=== PATIENT | male | born 1935 | race Two or more races ===

== ENCOUNTER → 2018-11-25 | Emergency (ER) | payer OTHER ==
[~2018-11-25] VITALS: Ht 165.1 cm; Wt 47.6 kg
[~2018-11-25] MED LIST: ARICEPT10 MG PO; CELEBREX100 MG PO; NAMENDA1 EACH PO; ORPHENADRINE C100 MG PO
== END | disposition home or self-care (01) ==
LOC: ER 10:49
DX: S52.515A Nondisplaced fracture of left radial styloid process, initial encounter for closed fracture (principal); S30.0XXA Contusion of lower back and pelvis, initial encounter; W18.39XA Other fall on same level, initial encounter; Y93.89 Activity, other specified; Y92.098 Other place in other non-institutional residence as the place of occurrence of the external cause; Y99.8 Other external cause status

== ENCOUNTER 2019-01-30 14:52 | Outpatient (CLI) | payer OTHER | END 2019-01-30 15:01 | disposition home or self-care (01) | LOC: TOM 14:52 | DX: S06.5X0A Traumatic subdural hemorrhage without loss of consciousness, initial encounter (principal); I67.82 Cerebral ischemia ==

== ENCOUNTER 2020-04-11 14:39 | Outpatient (CLI) | payer OTHER | END 2020-04-11 14:40 | disposition home or self-care (01) | LOC: MRI 14:39 | DX: G30.1 Alzheimer's disease with late onset (principal); I67.89 Other cerebrovascular disease | CPT/HCPCS: 70551 ==

== ENCOUNTER 2020-04-23 09:00 | Inpatient (IN) | payer OTHER ==
[~2020-04-23] VITALS: Ht 160 cm; Wt 45.4 kg
== END 2020-05-01 17:56 | disposition home or self-care (01) | DRG 683 ==
LOC: ER 09:00 → SEC-K 16:50 → SURH 16:50
PROVIDERS: ADMIT Internal Medicine; ATTEND Internal Medicine
PROC: BT43ZZZ Ultrasonography of Bilateral Kidneys (ICD-10-PCS; principal; 2020-04-23)
PROC: 0T9B70Z Drainage of Bladder with Drainage Device, Via Natural or Artificial Opening (ICD-10-PCS; 2020-04-23)
PROC: 0DH67UZ Insertion of Feeding Device into Stomach, Via Natural or Artificial Opening (ICD-10-PCS; 2020-04-24)
PROC: 3E0G76Z Introduction of Nutritional Substance into Upper GI, Via Natural or Artificial Opening (ICD-10-PCS; 2020-04-24)
PROC: 8E0ZXY6 Isolation (ICD-10-PCS; 2020-04-24)
DX: N17.8 Other acute kidney failure (principal); E87.0 Hyperosmolality and hypernatremia; E44.0 Moderate protein-calorie malnutrition; E86.0 Dehydration; E87.8 Other disorders of electrolyte and fluid balance, not elsewhere classified; R63.0 Anorexia; F03.90 Unspecified dementia, unspecified severity, without behavioral disturbance, psychotic disturbance, mood disturbance, and anxiety; R31.29 Other microscopic hematuria; Z03.818 Encounter for observation for suspected exposure to other biological agents ruled out

== ENCOUNTER 2020-05-28 18:38 | Emergency (ER) | payer OTHER ==
[~2020-05-28] VITALS: Ht 170.2 cm; Wt 63.5 kg
[2020-05-28] MEDS ORDERED: PANTOPRAZOLE (19:30)
== END 2020-05-28 23:59 | disposition home or self-care (01) ==
LOC: ER 18:38
DX: S70.02XA Contusion of left hip, initial encounter (principal); S70.01XA Contusion of right hip, initial encounter; M54.5 Low back pain; W06.XXXA Fall from bed, initial encounter; Y93.89 Activity, other specified; Y92.013 Bedroom of single-family (private) house as the place of occurrence of the external cause; Y99.8 Other external cause status

== ENCOUNTER 2020-07-13 23:02 | Emergency (ER) | payer OTHER ==
[~2020-07-13] VITALS: Ht 160 cm; Wt 45.4 kg
[~2020-07-13 23:02] MED LIST changes: +PANTOPRAZOLE
[2020-07-14] MEDS ORDERED: CELEBREX100 MG PO (03:08)
[2020-07-14] MEDS ORDERED: MULTI VITAMIN1 EACH PO (10:27)
== END 2020-07-14 03:33 | disposition home or self-care (01) ==
LOC: ER 23:02
DX: S01.82XA Laceration with foreign body of other part of head, initial encounter (principal); W45.8XXA Other foreign body or object entering through skin, initial encounter; Y93.89 Activity, other specified; Y92.098 Other place in other non-institutional residence as the place of occurrence of the external cause; Y99.8 Other external cause status

== ENCOUNTER 2020-07-14 10:20 | Emergency (ER) | payer OTHER ==
[~2020-07-14] VITALS: Ht 167.6 cm; Wt 44.9 kg
[2020-07-14] MEDS ORDERED: MULTI VITAMIN1 EACH PO (10:27)
== END 2020-07-14 14:53 | disposition home or self-care (01) ==
LOC: ER 10:20
DX: S00.11XD Contusion of right eyelid and periocular area, subsequent encounter (principal); W06.XXXD Fall from bed, subsequent encounter; G30.8 Other Alzheimer's disease; F02.80 Dementia in other diseases classified elsewhere, unspecified severity, without behavioral disturbance, psychotic disturbance, mood disturbance, and anxiety; M25.551 Pain in right hip

== ENCOUNTER 2022-06-02 22:44 | Inpatient (IN) | payer OTHER ==
[~2022-06-02] VITALS: Ht 152.4 cm; Wt 54.4 kg
[~2022-06-02 22:44] MED LIST changes: +MULTI VITAMIN1 EACH PO
--- NOTE | 2022-06-02 23:03 | NUR ---
SE RECIBE PACIENTE EN COMPANIA DE FAMILIAR Y PERSONAL DE EMERGENCIAS MEDICAS POR TOS CON FLEMA Y DIFICULTAD PARA RESPIRAR HACE VARIOS CARIAS. SE COLOCA EN K8 Y SE REALIZA TRIAGE.
--- NOTE | 2022-06-02 23:38 | NUR ---
SE EDUCA A PTE SOBRE TX MEDICO GREGG REFIERE ENTENDER. SE SERGEY MUESTRAS DE LABORATORIO UTILIZANDO MEDIDAS ASEPTICAS. SE COLOCA H/L AP TE Y SE COLOCA IV FLUIDS. SE NOTIFICAN RX Y ABGS PENDIENTES A REALIZAR.
--- NOTE | 2022-06-03 05:13 | NUR ---
PTE MASCULINO ALERTA Y ORIENTADO EN PERSONA EN COMPANIA DE FAMILIAR ES RE-EVALUADO POR . SE ORIENTA A FAMILIAR SOBRE ORDENES DE TX REFIERE COMPRENDER. SE EXTRAEN MUESTRAS DE LABORATORIOS, BAJO MEDIDAS ASEPTICAS. SE ADMINISTRAN MEDICAMENTOS, BAJO MEDIDAS ASEPTICAS. SE INSERTA SONDA URINARIA BAJO MEDIDAS ESETRILES, TAMANO F#16, SE OBSERVA EGRESO DE ORINA COLOR AMARILLO OSCURO CON APROXIMADAMENTE 25ML. SE NOTIFICAN TERAPIAS RESPIRATORIAS A .
--- NOTE | 2022-06-03 07:12 | NUR ---
PTE ALERTA Y ORIENTADO EN CAMA BAJA CON BARANDAS ELEVADAS POR SEGURIDAD, SE OBSERVA CON CANULA NASAL A 3 LITROS, NO REFIERE DOLOR, PTE RECIBIENDO IV FLUID. AREA DE VENOPUNCION ONIEL DE EDEMA Y ERITEMA, PATENTE. SOLEDAD CATETER DRENANDO A GRAVEDAD ORINA COLOR AMARILLO INTENSO. PEND CONS CON DR. MANZANO. SE MANTIENE BAJO OBSERVACION POR CAMBIOS SIGNIFICATIVOS.
[2022-06-04] MEDS ORDERED: PANTOPRAZOLE SO20 MG (10:34)
== END 2022-06-17 06:01 | disposition expired | DRG 871 ==
LOC: ER 22:44 → SEC-K 06-03 10:39 → MEDJ 06-03 10:39
PROVIDERS: ADMIT Internal Medicine; ATTEND Internal Medicine
PROC: 30233N1 Transfusion of Nonautologous Red Blood Cells into Peripheral Vein, Percutaneous Approach (ICD-10-PCS; principal; 2022-06-05)
PROC: 02HV33Z Insertion of Infusion Device into Superior Vena Cava, Percutaneous Approach (ICD-10-PCS; 2022-06-09)
PROC: 3E0F7SF Introduction of Other Gas into Respiratory Tract, Via Natural or Artificial Opening (ICD-10-PCS; 2022-06-10)
DX: A41.59 Other Gram-negative sepsis (principal); J69.0 Pneumonitis due to inhalation of food and vomit; N39.0 Urinary tract infection, site not specified; N17.9 Acute kidney failure, unspecified; E87.0 Hyperosmolality and hypernatremia; R13.19 Other dysphagia; E86.0 Dehydration; D63.8 Anemia in other chronic diseases classified elsewhere; G30.9 Alzheimer's disease, unspecified; F02.80 Dementia in other diseases classified elsewhere, unspecified severity, without behavioral disturbance, psychotic disturbance, mood disturbance, and anxiety; B96.4 Proteus (mirabilis) (morganii) as the cause of diseases classified elsewhere; Z66 Do not resuscitate; Z78.1 Physical restraint status; Z74.01 Bed confinement status; Z87.891 Personal history of nicotine dependence